=== PATIENT | female | born 1965 | race Caucasian/White ===

== ENCOUNTER 2019-10-14 18:59 | Emergency (ER) | payer OTHER ==
[~2019-10-14] VITALS: Ht 167.6 cm; Wt 83.9 kg
[2019-10-14 23:21] VITALS: BP 118/75
[2019-10-14] MEDS ORDERED: ACETAMINOPHEN 500 MG TAB PO ONE (23:30)
[2019-10-14] MEDS ORDERED: IBUPROFEN 800 MG TAB PO ONE (23:30)
== END 2019-10-15 00:18 | disposition home or self-care (01) ==
LOC: EDBD 18:59 → ER 18:59
DX: M17.12 Unilateral primary osteoarthritis, left knee (principal); M06.062 Rheumatoid arthritis without rheumatoid factor, left knee; G89.29 Other chronic pain; K21.9 Gastro-esophageal reflux disease without esophagitis; I10 Essential (primary) hypertension; E78.5 Hyperlipidemia, unspecified; Z90.49 Acquired absence of other specified parts of digestive tract; Z88.0 Allergy status to penicillin; Z88.5 Allergy status to narcotic agent
CPT/HCPCS: 73562